=== PATIENT | female | born 1965 | race African-American/Black ===

== ENCOUNTER 2017-07-09 22:31 | Inpatient (IN) | payer MEDICARE, OTHER ==
[~2017-07-09] VITALS: Ht 167.6 cm; Wt 100.0 kg
--- NOTE | 2017-07-09 22:37 | NUR ---
PT TO ER BED 11. BIBRA 39 FROM [facility] C/O "ALTERED X 30 MINS ADMINISTRATIVE TECHNICIAN" . PT VSS/RESP EVEN UNLABORED/NAD/AFEBRILE/SKIN WARM AND DRY. MD AT BEDSIDE FOR EVAL.
--- NOTE | 2017-07-09 22:40 | NUR ---
EMT AT BEDSIDE FOR EKG.
--- NOTE | 2017-07-09 23:28 | NUR ---
20G IV TO L FOOT X 3 ATTEMPTS USING ASEPTIC TECH, UNABLE TO GET LABS. LAB AT BEDSIDE TO DRAW. IV FLUSHES EASILY WITH NS, NO S/S INFILTRATION NOTED.
--- NOTE | 2017-07-09 23:54 | NUR ---
IN AND OUT CATH USING JUNIOR DATABASE ADMINISTRATOR, URINE SPECIMEN OBTAINED AND SENT TO THE LAB.
[2017-07-10] VITALS (7 sets, daily range): BP systolic 98–114; BP diastolic 54–71
[2017-07-10 00:03] LABS: APPEARANCE,URINE CLEAR (CLEAR); BILIRUBIN,URINE NEGATIVE (NEGATIVE); BLOOD, URINE 3+ Ery/uL (NEGATIVE); COLOR,URINE YELLOW (YELLOW); KETONES,URINE NEGATIVE (NEGATIVE); LEUKOCYTE ESTERASE ,URINE NEGATIVE (NEGATIVE); NITRITE, URINE POSITIVE (NEGATIVE); PROTEIN,URINE NEGATIVE (NEGATIVE); UGLUCOSE NEGATIVE (NEGATIVE); UROBILINOGEN,URINE 0.2 EU/dL (0.2)
[2017-07-10 00:06] LABS: BASOPHILS % (AUTO) 0.3 % (0.0-2.0); EOSINOPHILS % (AUTO) 0.1 % (0.0-6.0); HEMATOCRIT 38 % (33-45); HEMOGLOBIN 12.6 g/dL (11.5-14.8); LYMPHOCYTES # (AUTO) 0.9 /CMM (0.8-4.8); LYMPHOCYTES % (AUTO) 11.2 % (20.0-44.0); MEAN CORPUSCULAR HEMOGLOBIN 30 PG (26.0-33.0); MEAN CORPUSCULAR HGB CONC 34 g/dl (31.0-36.0); MEAN CORPUSCULAR VOLUME 89 fL (82-100); MONOCYTES # (AUTO) 0.7 /CMM (0.1-1.30); NEUTROPHILS # (AUTO) 6.7 /CMM (1.8-8.9); NEUTROPHILS % (AUTO) 80.4 % (43.0-81.0); PLATELET COUNT (AUTO) 266 /CMM (150-450); RDW COEFFICIENT OF VARIATION 15.7 (11.5-15.0); RED BLOOD CELL COUNT(AUTO) 4.25 MIL/uL (4.0-5.2); WHITE BLOOD COUNT (AUTO) 8.4 K/uL (4.3-11.0)
[2017-07-10 00:15] LABS: CALCIUM, SERUM 9.1 mg/dL (8.5-10.1); CARBON DIOXIDE 27 mmol/L (21-32); CHLORIDE 101 mmol/L (98-107); CREATININE 1.2 mg/dL (0.6-1.3); GLUCOSE 116 mg/dL (74-106); POTASSIUM 4.5 mmol/L (3.5-5.1); SODIUM SERUM 136 mmol/L (136-145); UREA NITROGEN, BLOOD 29 mg/dL (7-18)
[2017-07-10 00:16] LABS: INR 0.95 (0.87-1.13)
[2017-07-10 00:20] LABS: TROPONIN I < 0.017 ng/mL (0.00-0.056)
[2017-07-10 00:20] LABS: BACTERIA,URINE 1+ /HPF (None Seen); RBC,URINE 21-50 /HPF (0-2); SQUAMOUS EPITHELIAL CELL,UR Few /HPF (None Seen)
--- NOTE | 2017-07-10 00:20 | NUR ---
PT TO CT VIA STRETCHER. VSS.
[2017-07-10 00:29] LABS: ACETAMINOPHEN 0 ug/ml (10-30); ALANINE AMINOTRANSFERASE 36 U/L (12-78); ALBUMIN 3.6 g/dL (3.4-5.0); ALCOHOL, BLOOD < 3 mg/dL (0-0); ALKALINE PHOSPHATASE 88 U/L (46-116); ASPARTATE AMINOTRANSFERASE 29 U/L (15-37); BILIRUBIN,DIRECT 0.1 mg/dL (0.0-0.2); BILIRUBIN,TOTAL 0.3 mg/dL (0.2-1.0); SALICYLATE 1.3 mg/dL (2.8-20.0); TOTAL PROTEIN, SERUM 7.7 g/dL (6.4-8.2)
--- NOTE | 2017-07-10 00:29 | NUR ---
PT BACK FROM CT.
[2017-07-10] MEDS ORDERED: CEFTRIAXONE 1GM BAG (ER ONLY) 1 GM/50 ML PIGGYBACK IV ONE (00:30)
[2017-07-10] MEDS ORDERED: DIVA500T2 PO (00:31)
[2017-07-10] MEDS ORDERED: GABA600T2 PO (00:31)
[2017-07-10] MEDS ORDERED: IBUP-1955 PO (00:31)
[2017-07-10] MEDS ORDERED: LUBI8CAP PO (00:31)
[2017-07-10] MEDS ORDERED: ASCO500T9 PO (00:31)
[2017-07-10] MEDS ORDERED: TRAZ-144 PO (00:31)
[2017-07-10] MEDS ORDERED: PALI234D IM (00:31)
[2017-07-10] MEDS ORDERED: ACET-868 PO (00:31)
[2017-07-10] MEDS ORDERED: MULT1TAB73 PO (00:31)
[2017-07-10] MEDS ORDERED: CEFTRIAXONE 1GM BAG (ER ONLY) 50 ML IV ONE (00:35)
--- NOTE | 2017-07-10 00:52 | NUR ---
REPORT GIVEN TO INOCENCIO BROWN FOR YAQUELIN.
[2017-07-10] MEDS ORDERED: HYDROCODONE/APAP 5/325MG 1 EACH TABLET PO PRN (01:30)
[2017-07-10] MEDS ORDERED: ONDANSETRON HCL/PF 4 MG/2 ML VIAL IVP PRN (01:30)
[2017-07-10] MEDS ORDERED: LORAZEPAM INJ 2 MG/ML VIAL IV PRN (01:30)
[2017-07-10] MEDS ORDERED: MAG HYDROX/AL HYDROX/SIMETH 30 ML UDC PO PRN (01:30)
[2017-07-10] MEDS: ENOXAPARIN SODIUM 40 MG/0.4 ML DISP.SYRIN SQ SCH (01:30)
[2017-07-10] MEDS ORDERED: MAGNESIUM HYDROXIDE 30 ML UDC PO PRN (01:30)
[2017-07-10] MEDS ORDERED: HYDROCODONE/APAP 10/325MG 1 EA TABLET PO PRN (01:30)
[2017-07-10] MEDS ORDERED: ACETAMINOPHEN 325 MG TABLET PO PRN (01:30)
[2017-07-10] MEDS ORDERED: IBUPROFEN 600 MG TABLET PO PRN (01:30)
--- NOTE | 2017-07-10 01:35 | NUR ---
ADVERTISING CLERK NOTES RECEIVED PT FROM ER VIA GURNEY, PT TRANSFERRED TO BED SAFELY. PT IS LETHARGIC , OPENS EYES ON PAINFUL STIMULI, BUT DOESN'T FOLLOW SIMPLE COMMAND AND WILL GO BACK TO SLEEP. WITH EPISODES OF SCREAMING THEN WILL GO BACK TO SLEEP RIGHT AFTER. PT WITH NO DISTRESS NOR SOB NOTED, RESPIRATION IS EVEN AND UNLABORED. NO S/S OF PAIN OR DISCOMFORT AT THIS TIME. IV SITE ON LEFT FOOT G # 20 INTACT AND PATENT, FLUSHED WITH NS , NO INFILTRATION NOTED. BODY CHECK DONE, SKIN IS INTACT. ALL NEEDS ATTENDED AND MET. SAFETY PRECAUTIONS OBSERVED. ASPIRATION PRECAUTION OBSERVED. CALL LIGHT WITHIN REACH. WILL CONTINUE TO MONITOR.
--- NOTE | 2017-07-10 01:43 | NUR ---
PT TRANSPORTED TO [place] [address]-2 VIA STRETCHER ON CUTTER GAS WITH RN PER ACLS PROTOCOL. VSS.
--- NOTE | 2017-07-10 02:30 | NUR ---
PT ASLEEP, APPEARS COMFORTABLE. RESTING AT THIS TIME. OPENS EYES ON PAINFUL STIMULI, THE GOES BACK TO SLEEP AFTER. PT ON SR 81 ON TELE MONITOR. NO S/S OF PAIN OR DISCOMFORT. SAFETY AND ASPIRATION PRECAUTION OBSERVED. CALL IGHT WITHIN REACH. WILL CONTINUE TO MONITOR.
[2017-07-10] MEDS: IV NS 0.9% 1,000 ML IV PRN ×2 (03:03→16:31)
--- NOTE | 2017-07-10 06:59 | NUR ---
ON SR 65 ON TELE MONITOR, WILL ENDORSE TO NEXT SHIFT FOR YAQUELIN.
--- NOTE | 2017-07-10 06:59 | NUR ---
METAL TANK ERECTOR NOTES PT IN BED, ASLEEP, APPEARS COMFORTABLE. OPENS EYES ON PAINFUL STIMULI, BUT DOESN'T FOLLOW SIMPLE COMMAND AND WILL GO BACK TO SLEEP RIGHT AWAY. PER MACHINE DESIGNER PT REFUSD LAB DRAW, THEY WILL JUST COME BACK AGAIN LATER. PT WITH NO DISTRESS NOR SOB NOTED, RESPIRATION IS EVEN AND UNLABORED. NO S/S OF PAIN OR DISCOMFORT AT THIS TIME. IV SITE ON LEFT FOOT G # 20 INTACT AND PATENT, IVF INFUSING WELL, KEVIN, CHARGE NURSE AWARE. ALL NEEDS ATTENDED AND MET. SAFETY PRECAUTIONS OBSERVED. ASPIRATION PRECAUTION OBSERVED. CALL LIGHT WITHIN REACH. WILL ENDORSE TO NEXT SHIFT FOR YAQUELIN.
--- NOTE | 2017-07-10 08:00 | NUR ---
RN NOTES RECEIVED PATIENT IN T[HE BED. TELE SR-72, A/O X2/3, IRRITABLE EASILY, HARD TO FOLLOW DIRECTION, PATIENT TAKE MEDICATION AFTER MULTIPLE PROMPT. PATIENT STATE " I AM , AND WANTED TO KEEP MY BABY". NEEDS ATTENDED AND ANTICIPATED, IV LINE ON LEFT FOOT NS AT 75 ML/HR INTACT, ASSIST TURN AND REPOSTION Q 2 HR, CALL LIGHT WITHIN TO REACH, CONTINUED MONITORING.
[2017-07-10] MEDS ORDERED: CEFTRIAXONE 1 G in IV NS 0.9% 50 ML IV SCH (09:00)
[2017-07-10] MEDS: ASCORBIC ACID 500 MG TABLET PO SCH (09:20)
[2017-07-10] MEDS: PANTOPRAZOLE 40 MG TABLET.DR PO SCH (09:20)
[2017-07-10] MEDS: MULTIVITAMINS,THERAGRAN 1 UDTAB TABLET PO SCH (09:20)
[2017-07-10] MEDS: DICYCLOMINE HCL 10 MG CAPSULE PO SCH ×4 (09:21→17:00)
[2017-07-10] MEDS: GABAPENTIN 300 MG CAPSULE PO SCH ×4 (09:21→17:00)
--- NOTE | 2017-07-10 09:29 | NUR ---
RN NOTES ADMINISTERED NARCO 10/325 MG PO PRN FOR LOWER ABDOMINAL PAIN 09/26, V/S TAKEN BP 101/71, P-68, CONTINUED MONITORING.
--- NOTE | 2017-07-10 10:00 | NUR ---
rn notes patient sleeping at this time, medication were administered for pain effective, call light within to reach, needs attended and anticipated, continued monitoring.
--- NOTE | 2017-07-10 11:08 | NUR ---
rn notes patient d/c tele to med/surge per dr Lebron, continued monitoring.
--- NOTE | 2017-07-10 18:30 | NUR ---
rn notes patient refused 1700 medication, explained important of medication intake, but still refused. v/s taken stable, assist turn and reposition q 2 hr. needs attended and anticipated, infusing ns at right wrist 75 ml/hr intact, encouraged to eat dinner, continued monitoring. endorsed oncoming nurse for jenn.
--- NOTE | 2017-07-10 19:20 | NUR ---
RN NOTES: RECEIVED AWAKE ON BED,A/OX1-2, CONFUSED, SHE IS THINKING SHE IS ,VERBALLY RESPONSIVE,ABLE TO MAKE NEEDS KNOWN, IVF ONGOING AT 75 ML/HR VIA INFUSSION PUM, IV CANNULA INTACT ON THE RIGHT WRIST G#22,NOT ON RESPIRATORY DISTRESS,FALL,SAFETY AND ASPIRATION PRECAUTION OBSERVED, SHE IS EATING HER DINNER DURING ENDORSEMENT,BED LOW AND LOCKED, CALL LIGHT WITHIN EASY REACH, KEPT ON CLOSE WATCH.
--- NOTE | 2017-07-10 20:19 | NUR ---
RN NOTES; FOR BLOOD TEST, PER DIRECTOR OF CULTURE STEVE THIS IS THE 3RD TIME FOR TODAY THAT SHE REFUSED FOR BLOOD TEST.WILL TRY AGAIN IN THE MORNING.
[2017-07-10] MEDS: CEFTRIAXONE 1 G in IV NS 0.9% 50 ML IV SCH (21:23)
--- NOTE | 2017-07-10 21:33 | NUR ---
RN NOTES: CALL AT FREQUENT INTERVALS, NEED ATTENDED, GIVEN SNACK AND SANDWICH, ALSO JUICE,KEPT ON CLOSE WATCH. CALL LIGHT WITHIN EASY REACH.
[2017-07-10] MEDS: DIVALPROEX SODIUM 500 MG TABLET.DR PO SCH (21:57)
--- NOTE | 2017-07-10 21:58 | NUR ---
RN NOTES: EXPLAINED TO HER ITS TIME TO TAKE HER MEDICATION DEPAKOTE AND DESYREL, EXPLAINED TO HER ACTION AND INDICATION, SHE DONT WANT TO BELIEVED, SHE REFUSED TO TAKE THE MEDICATION, DESPITE ALL EXPLANATION SHE SAID"I DONT NEED ANY MEDICATION HERE, SHE EVEN ASKED TO REMOVE THE ROCEPHINE IV WHICH HAVE ALREADY STARTED INFUSING.CN NOTIFIED. Addendum: 07/11/17 at 0146 by ELMA TOM RN -MEDICATION RETURNED.
[2017-07-10] MEDS ORDERED: TRAZODONE 50 MG TABLET PO SCH (22:00)
--- NOTE | 2017-07-11 00:14 | NUR ---
RN NOTES: NOT SLEEPING,WATCHING TV, CALLING AND ASKING FOR FOOD, GIVEN TUNA SANDWICH, JUICE AND PUDDING, EXPLAINED TO HER ITS TIME TO REST AND SLEEP NOW ITS ALREADY MID-NIGHT, WARM BLANKET GIVEN, KEPT IN COMFORTABLE POSITION.
[2017-07-11] MEDS: ENOXAPARIN SODIUM 40 MG/0.4 ML DISP.SYRIN SQ SCH (01:30)
--- NOTE | 2017-07-11 01:39 | NUR ---
RN NOTES: HAS A LARGE BOWEL MOVEMENT, CLEAN AND CHANGE; EXPLAINED TO HER REGARDING THE LOVENOX INJECTION FOR DVT PROPHYLAXIS,IT WILL BE GIVEN SUBCUTANEOUSLY, SHE SAID "I DONT NEED ANY INJECTION, IT WILL HARM MY BABY, I AM , DO NOT GIVE ME ANY MEDICATION", SHE STRONGLY REFUSED. LOVENOX NOT GIVEN.RETURNED.
--- NOTE | 2017-07-11 02:30 | NUR ---
RN NOTES: AWAKE MOST OF THE TIME,PATIENT IS PARANOID AND VERY SUSPICIOUS, NEEDS AMPLE TIME AND PATIENCE TO EXPLAINED TO HER WHAT IS GOING ON, SHE IS CONFUSED AND INSISTING THAT SHE IS , SHE HAS PERIODS OF AGITATION.ENCOURAGE TO RELAX AND TRY TO GET SOME SLEEP, OFFERED MEDICATION BUT SHE STRONGLY REFUSED TO TAKE ANY ORAL MEDS.KEPT ON CLOSE WATCH.CALL LIGHT WITHIN EASY REACH.
--- NOTE | 2017-07-11 04:16 | NUR ---
RN NOTES: ABLE TO TAKE A SHORT NAP, AWAKE AT 415AM, MORNING CARE RENDERED, CLEAN AND CHANGE.
--- NOTE | 2017-07-11 05:03 | NUR ---
RN NOTES: SHE IS CRYING,SHE HAD ANOTHER BOWEL MOVEMENT, FORMED STOOL, SMALL AMOUNT,CLEAN AND CHANGE. REFUSED TO PUT INCONTINENT PAD.AFTER CHANGING SHE KEEP QUIET.KEPT RESTED, CALL LIGHT WITHIN EASY REACH.
--- NOTE | 2017-07-11 06:37 | NUR ---
RN NOTES: CALLS AND NEEDS ATTENDED, BRIEF CHANGE AGAIN BEFORE ENDORSEMENT TIME,ABLE TO TAKE A NAP,KEPT CALL LIGHT WITHIN EASY REACH, NO SIGN OF SOB,NO PAIN OR DISCOMFORT NOTED AT THIS TIME.ENDORSED FOR CONTINUITY OF CARE.
[2017-07-11] MEDS: PANTOPRAZOLE 40 MG TABLET.DR PO SCH (07:30)
--- NOTE | 2017-07-11 07:44 | NUR ---
MS/RN OPENING NOTE PATIENT IN BED IN STABLE CONDITION. A/O X 1-2, WITH EPISODES OF CONFUSION AND FORGETFULNESS. NO SIGNS OF ACUTE DISTRESS. NO COMPLAIN OF PAIN OR DISCOMFORT. ALL NEEDS ATTENDED TO. CALL LIGHT WITHIN REACH. WILL CONTINUE TO MONITOR TO ENSURE SAFETY.
[2017-07-11 08:00] VITALS: BP 110/75
--- NOTE | 2017-07-11 08:42 | NUR ---
MS/RN 9AM MEDS REFUSE PATIENT REFUSE ALL 9AM MEDS, OFFERED X 3 WITH RISKS AND BENEFITS EXPLAINED STILL CONTINUE TO REFUSE. PATIENT VERBALIZED, THOSE ARE NOT MY PILLS, THEY DON'T LOOK LIKE THE ONE I TAKE, MY MEDICATIONS ARE ORANGE COLOR." EXPLAINED TO PATIENT THOSE MEDS ARE PRESCRIBED BY YOUR DOCTOR AND EXPLAINED EACH MEDICATION, WHAT ITS FOR. PATIENT STILL CONTINUE TO REFUSE.
[2017-07-11] MEDS: GABAPENTIN 300 MG CAPSULE PO SCH ×3 (08:44→17:04)
[2017-07-11] MEDS: ASCORBIC ACID 500 MG TABLET PO SCH (08:44)
[2017-07-11] MEDS: MULTIVITAMINS,THERAGRAN 1 UDTAB TABLET PO SCH (08:44)
[2017-07-11] MEDS: DICYCLOMINE HCL 10 MG CAPSULE PO SCH ×3 (08:44→17:04)
--- NOTE | 2017-07-11 10:41 | NUR ---
MS/RN C DIFF POSITIVE RECEIVED CALL FROM JENN FROM [facility] AND HE RELAYED STOOL C DIFF POSITIVE FOR PATIENT. BOAT OUTFITTER ARNIE GIVENS.
--- NOTE | 2017-07-11 10:54 | NUR ---
MS/RN SPOKE WITH AUTOMATIC PINSETTER ADJUSTER ARNIE SPOKE WITH AUTOMATIC PINSETTER ADJUSTER ARNIE AND RELAYED C DIFF STOOL RESULTS AND MADE AWARE PATIENT REFUSAL OF NURSING CARE, MEDICATION AND LAB WORK. PER ARNIE SHE WILL REVIEW THE CHART AND PUT IN ORDERS.
[2017-07-11 16:00] VITALS: BP 118/77
[2017-07-11] MEDS: BENZTROPINE MESYLATE (1 MG) 1 MG TABLET PO SCH (17:04)
[2017-07-11] MEDS: risperiDONE 1 MG TABLET PO SCH (17:04)
[2017-07-11] MEDS: METRONIDAZOLE 500 MG TABLET PO SCH (17:04)
--- NOTE | 2017-07-11 18:19 | NUR ---
MS/RN CLOSING NOTE PATIENT IN BED IN STABLE CONDITION. A/O X 1-2 WITH EPISODES OF FORGETFULNESS AND CONFUSION. NO SIGNS OF ACUTE DISTRESS. NO COMPLAIN OF PAIN OR DISCOMFORT. ALL NEEDS ATTENDED TO. CALL LIGHT WITHIN REACH. WILL ENDORSE TO NEXT SHIFT FOR CONTINUITY OF CARE.
--- NOTE | 2017-07-11 19:25 | NUR ---
RN OPEN NOTES RECEIVED PATIENT AWAKE IN BED. A/OX2. NO SIGNS OF DISTRESS OR DISCOMFORT. BREATHING EVEN AND UNLABORED. IV ACCESS IN R WRIST, PATENT AND INTACT, NO SIGNS OF REDNESS OR INFILTRATION. BED IN LOW LOCKED POSITION WITH SIDE RAILS X2. CALL LIGHT WITHIN REACH. WILL CONTINUE TO MONITOR.
[2017-07-11 20:00] VITALS: BP 128/76
[2017-07-11] MEDS: CEFTRIAXONE 1 G in IV NS 0.9% 50 ML IV SCH (21:54)
--- NOTE | 2017-07-11 21:55 | NUR ---
RN NOTES PATIENT REFUSED DEPAKOTE AND DESYREL ADMINISTRATION X3. PATIENT STATES SHE DOESNT KNOW WHY THE DOCTOR WOULD PRESCRIBE SEIZURE MEDICATION WHEN SHE DOESNT HAVE SEIZURES AND THE MEDICATIONS ARE GOING TO KILL HER BABIES. PATIENT IS VERY PARANOID, RISK AND BENEFITS EXPLAINED. WILL CONTINUE TO MONITOR.
[2017-07-11] MEDS ORDERED: TRAZODONE 50 MG TABLET PO SCH (22:00)
[2017-07-11] MEDS: DIVALPROEX SODIUM 500 MG TABLET.DR PO SCH (22:00)
[2017-07-12] MEDS: METRONIDAZOLE 500 MG TABLET PO SCH ×5 (00:59→17:17)
[2017-07-12] MEDS: ENOXAPARIN SODIUM 40 MG/0.4 ML DISP.SYRIN SQ SCH (01:21)
--- NOTE | 2017-07-12 06:46 | NUR ---
RN CLOSING NOTES PATIENT AWAKE IN BED. A/OX2. NO SIGNS OF DISTRESS OR DISCOMFORT. BREATHING EVEN AND UNLABORED. IV ACCESS IN R WRIST, PATENT AND INTACT, NO SIGNS OF REDNESS OR INFILTRATION. PATIENT REFUSED ALL PO MEDICATIONS. RISK AND BENEFITS WERE EXPLAINED. ALL OTHER NEEDS MET. NO SIGNIFICANT CHANGES THROUGH THE NIGHT. BED IN LOW LOCKED POSITION WITH SIDE RAILS X2. CALL LIGHT WITHIN REACH. WILL ENDORSE TO AM SHIFT FOR YAQUELIN.
[2017-07-12 08:00] VITALS: BP 92/52
[2017-07-12] MEDS: ASCORBIC ACID 500 MG TABLET PO SCH (08:32)
[2017-07-12] MEDS: BENZTROPINE MESYLATE (1 MG) 1 MG TABLET PO SCH ×2 (08:32→17:17)
[2017-07-12] MEDS: GABAPENTIN 300 MG CAPSULE PO SCH ×3 (08:32→17:18)
[2017-07-12] MEDS: risperiDONE 1 MG TABLET PO SCH ×2 (08:32→17:17)
[2017-07-12] MEDS: PANTOPRAZOLE 40 MG TABLET.DR PO SCH (08:32)
[2017-07-12] MEDS: MULTIVITAMINS,THERAGRAN 1 UDTAB TABLET PO SCH (08:32)
[2017-07-12] MEDS: DICYCLOMINE HCL 10 MG CAPSULE PO SCH ×3 (08:32→17:17)
--- NOTE | 2017-07-12 08:33 | NUR ---
RN NOTES RECEIVED PATIENT IN THE ROOM, A/O X2/3, DELUSIONAL, SELF DISTRACTIVE, ALSO PATIENT WAS C/O PAIN LOWER ABDOMEN, ADMINISTERED NARCO 5/325 MG PO PRN, SCHEDULED MEDICATION ADMINISTERED AFTER MULTIPLE PROMPTS. PATIENT HAS NO RESPIRATORY DISTRESS, ENCOURAGED TO EXPRESS FEELINGS AND CONCERNS, NEEDS ATTENDED AND ANTICIPATED. CALL LIGHR WITHIN TO REACH, PATIENT ON CONTACT ISOLATION, CONTINUED MONITORING.
--- NOTE | 2017-07-12 09:30 | NUR ---
RN NOTES PATIENT RESTING IN THE BED, MEDICATION WERE ADMINISTERED FOR PAIN EFFECTIVE. NO ACUTE DISTRESS. CALL LIGHT WITHIN TO REACH, CONTINUED MONITORING.
[2017-07-12] MEDS ORDERED: RISP1TAB7 PO (13:17)
[2017-07-12] MEDS ORDERED: METR500T PO (13:17)
[2017-07-12] MEDS ORDERED: CEFT1VIA15 IV (13:17)
[2017-07-12] MEDS ORDERED: TRAZ-144 PO (13:17)
[2017-07-12] MEDS ORDERED: DICY10CA37 PO (13:17)
[2017-07-12] MEDS ORDERED: BENZ1TAB7 PO (13:17)
--- NOTE | 2017-07-12 14:25 | NUR ---
RN NOTES PATIENT GOING TO D/C SNF. NO ACUTE DISTRESS, CALL LIGHT WITHIN TO REACH, SCHEDULED MEDICATION ADMINISTERED. CONTINUED MONITORING.
[2017-07-12 16:00] VITALS: BP 116/58
--- NOTE | 2017-07-12 18:30 | NUR ---
RN NOTES ADMINISTERED ATIVAN 1 MG/ML IV PUSH PER PATIENT REQUEST FOR ANXIETY, PARANOIA, V/S TAKEN BP -116/75, P-80, CONTINUED MONITORING.
--- NOTE | 2017-07-12 19:14 | NUR ---
DISCHARGE NOTES PATIENT DISCHARGE AT THIS TIME GOING SNF. PATIENT STABLE, MED COMPLAINANT , V/S STABLE, NO C/O PAIN AT THIS TIME. MED RECONCILIATION AND DISCHARGE ORDER REVIEWED AND EXPLAINED TO. REPORT GIVEN SNF RN. RN VERBALIZED UNDERSTANDING. BELONGING RETURNED BACK TO THE PATIENT. PATIENT REFUSED SIGN PAPERWORK. PATIENT WILL FOLLOW FACILITY [facility]. PATIENT DPO NAME TED AWARE OF. PATIENT NETWORK PROGRAMMER BY AMBULANCE.
== END 2017-07-12 19:01 | DRG 371 ==
LOC: ER 22:33 → TELE 07-10 00:20 → MED 07-10 09:29
PROVIDERS: ADMIT Nurse Practitioner Acute Care; ATTEND Nurse Practitioner Acute Care
DX: A04.72 Enterocolitis due to Clostridium difficile, not specified as recurrent (principal); G93.41 Metabolic encephalopathy; F05 Delirium due to known physiological condition; F25.0 Schizoaffective disorder, bipolar type; N39.0 Urinary tract infection, site not specified; J98.11 Atelectasis; H05.20 Unspecified exophthalmos; G40.909 Epilepsy, unspecified, not intractable, without status epilepticus; J44.9 Chronic obstructive pulmonary disease, unspecified; M79.2 Neuralgia and neuritis, unspecified; K58.9 Irritable bowel syndrome, unspecified; Z88.0 Allergy status to penicillin; Z91.013 Allergy to seafood; Z79.899 Other long term (current) drug therapy; B96.89 Other specified bacterial agents as the cause of diseases classified elsewhere; I51.7 Cardiomegaly; Z68.33 Body mass index [BMI] 33.0-33.9, adult; E66.9 Obesity, unspecified; F10.10 Alcohol abuse, uncomplicated
CPT/HCPCS: 36415; 70450-TC; 71045-TC; 80048-TC; 80076-TC; 80305; 81000-TC; 82962-TC; 83605-TC; 83880; 84484-TC; 85025-TC; 85730-TC; 87040-TC; 87081-TC; 87086-TC; A4216; A4606; G0480; J0696; J1650; J2060; J7030; J7050; Z7610